=== PATIENT | female | born 1985 ===

== ENCOUNTER 2023-08-15 14:20 | Outpatient (OUT) | payer BC, SELFPAY ==
--- NOTE | 2023-08-15 14:24 | MM_ITS ---
Patient Name: KANWAL WHITAKER MR#: [id number] : 1985 Exam Date: 08/15/2023 Ordering Doctor: MRS. ERIN RUSSO . RADIOLOGY REPORT PROCEDURE: MM TOMOSYNTHESIS SCREENING BI COMPARISON: None. INDICATIONS: Screening Calculator Name NCI Breast Cancer Risk Assessment Tool 5 Year Breast Cancer Risk 0.30% Lifetime Breast Cancer Risk 6.80% Personal Breast Cancer No Personal Ovarian Cancer No Treatments None Family Cancers Aunt-maternal with breast cancer at age 37; Grandmother-maternal with breast cancer at age 37. LOCATION: [facility] BREAST COMPOSITION: Extremely dense, which lowers the sensitivity of mammography. FINDINGS: DIAGNOSTIC CATEGORY 1--NEGATIVE. Scattered benign-appearing calcifications are present. RIGHT BREAST: No significant suspicious finding. LEFT BREAST: No significant suspicious finding. RECOMMENDATIONS: CLINICAL EVALUATION. PLEASE NOTE: A NORMAL MAMMOGRAM DOES NOT EXCLUDE THE POSSIBILITY OF BREAST CANCER. A CLINICALLY SUSPICIOUS PALPABLE LUMP SHOULD BE BIOPSIED. Dictated by: Ortega Kaminski MD on 08/16/2023 at 09:21 Approved by: Ortega Kaminski MD on 08/16/2023 at 09:23
== END 2023-08-15 14:21 | disposition home or self-care (01) ==
LOC: MAMMO 14:21
PROVIDERS: PCP Nurse Practitioner; Visit Provider Nurse Practitioner
DX: Z12.31 Encounter for screening mammogram for malignant neoplasm of breast (principal); Z80.3 Family history of malignant neoplasm of breast
CPT/HCPCS: 77063; 77067